=== PATIENT | female | born 1945 | race Caucasian/White ===

== ENCOUNTER 2017-10-11 05:41 | Day surgery (SDC) | payer MEDICARE ==
--- NOTE | 2017-10-07 11:34 | Pre-Procedure Note/Attestation ---
Pre-Procedure Note/Attestation Complete Prior to Procedure Planned Procedure: right Procedure Narrative: 1. CATARACT EXTRACTION WITH PHACO AND PC IOL IMPLANTATION, RIGHT EYE. Indications for Procedure Pre-Operative Diagnosis: 1. CATARACT , RIGHT EYE Attestation I attest that I discussed the nature of the procedure; its benefits; risks and complications; and alternatives (and the risks and benefits of such alternatives ), prior to the procedure, with the patient (or the patient's legal freight representative). I attest that, if there was a reasonable possibility of needing a blood transfusion, the patient (or the patient's legal freight representative) was given the [place] [employer] [facility] [employer] [facility] standardized written summary, pursuant to the [place] Blood Safety Act ([place] Health and Safety Code # 1645, as amended). I attest that I re-evaluated the patient just prior to the surgery and that there has been no change in the patient's H&P, except as documented below: NICOLAS CARTWRIGHT Oct 07, 2017 11:34
[2017-10-11] VITALS (10 sets, daily range): BP systolic 121–143; BP diastolic 63–74
[~2017-10-11] VITALS: Ht 157.5 cm; Wt 60.8 kg
[~2017-10-11 05:41] MED LIST: Akten 3.5% 1ml Btl ONE; Ketorolac Tromethamine Opth 5ml Soln ONE; Phenylephrine 10% Opth Soln 5ml ONE; Tropicamide 1% Opth 15ml Soln ONE; Vigamox Opth Soln 3ml ONE
[2017-10-11] MEDS ORDERED: acetaZOLAMIDE 125mg tab ORAL ONE (06:00)
[2017-10-11] MEDS: Ketorolac Tromethamine Opth 5ml Soln RIGHT EYE SCH ×3 (06:32→06:48)
[2017-10-11] MEDS: Phenylephrine 10% Opth Soln 5ml RIGHT EYE SCH ×3 (06:32→06:48)
[2017-10-11] MEDS: Akten 3.5% 1ml Btl RIGHT EYE SCH ×3 (06:33→06:48)
[2017-10-11] MEDS: Tropicamide 1% Opth 15ml Soln RIGHT EYE SCH ×3 (06:33→06:48)
[2017-10-11] MEDS: Vigamox Opth Soln 3ml RIGHT EYE SCH ×3 (06:33→06:48)
[2017-10-11] MEDS ORDERED: VITAMIN D1000 UNI1 ORAL (06:54)
[2017-10-11] MEDS ORDERED: METOPROLOL TAR100 M1 ORAL (06:54)
[2017-10-11] MEDS ORDERED: ASPIRIN325 MG ORAL (06:54)
[2017-10-11] MEDS ORDERED: VITAMIN C500 M1 ORAL (06:54)
[2017-10-11] MEDS ORDERED: IRON 100 PLUS1 EACH PO (06:54)
[2017-10-11] MEDS ORDERED: LISINOPRIL5 MG ORAL (06:54)
[2017-10-11] MEDS ORDERED: ATORVASTATIN CA40 MG ORAL (06:54)
[2017-10-11] MEDS ORDERED: BSS 500ml btl ONE ×2 (06:59→08:05)
[2017-10-11] MEDS ORDERED: fentaNYL 100 mcg/2 mL IV ONE (07:00)
[2017-10-11] MEDS ORDERED: Propofol 200mg/20ml IV ONE (07:00)
[2017-10-11] MEDS ORDERED: Dexamethasone 4mg/ml vial ONE (07:00)
[2017-10-11] MEDS ORDERED: Midazolam 2mg/2ml Inj ONE (07:00)
[2017-10-11] MEDS ORDERED: LR 1000ml ONE (07:00)
[2017-10-11] MEDS ORDERED: Tetracaine 0.5% Opth 4ml Soln ONE (07:00)
[2017-10-11] MEDS ORDERED: Carbachol 0.01% Op Soln 1.5ml vial ONE (07:01)
[2017-10-11] MEDS ORDERED: EPINEPHrine 1mg/1ml Amp ONE (07:01)
[2017-10-11] MEDS ORDERED: Povidone-Iodine 5% opth solution ONE (07:01)
[2017-10-11] MEDS ORDERED: BSS 15ml BTL ONE (07:02)
[2017-10-11] MEDS ORDERED: Sodium Hyaluronate 10 mg/ml 0.85ml ONE (07:02)
[2017-10-11] MEDS ORDERED: Lidocaine 2% MPF 5ml Vial INJ ONE (07:12)
[2017-10-11] MEDS ORDERED: Lidocaine 1% MPF 10mg/ml 5ml ONE (07:12)
[2017-10-11] MEDS ORDERED: LR 1000ml 1,000 ML IVLG SCH (07:42)
--- NOTE | 2017-10-11 07:42 | Anethesia Preoperative Eval ---
Anesthesia Pre-op PMH/ROS General Date of Evaluation: Oct 11, 2017 Time of Evaluation: 07:10 Anesthesiologist: Rupa ASA Score: ASA 3 Mallampati Score Class I : Soft palate, uvula, fauces, pillars visible Class II: Soft palate, uvula, fauces visible Class III: Soft palate, base of uvula visible Class IV: Only hard plate visible Mallampati Classification: Class II Surgeon: Timothy Diagnosis: R eye cataract Surgical Procedure: R eye cataract exctraction Anesthesia History: none Family History: no anesthesia problems Allergies: Coded Allergies: No Known Allergies (Unverified , 10/07/17) Past Medical History Cardiovascular: Reports: HTN, CAD - stable no recent CP, Denies: OK, valve dz, arrhythmia, other Pulmonary: Reports: COPD, Denies: asthma, JIM, other Gastrointestinal/Genitourinary: Reports: GERD, Denies: CRI, ESRD, other Neurologic/Psychiatric: Reports: depression/anxiety, Denies: dementia, CVA, TIA, other Endocrine: Denies: DM, hypothyroidism, steroids, other HEENT: Reports: cataract (L), cataract (R), Denies: glaucoma, ALTURAS (L), ALTURAS (R), other Hematology/Immune: Reports: anemia - mild, Denies: DVT, bleeding disorder, other Musculoskeletal/Integumentary: Denies: OA, RA, DJD, DDD, edema, other PMH Narrative: as above PSxH Narrative: VATS, coronary stent placement Anesthesia Pre-op Phys. Exam Physician Exam Last Vital Signs Date Time Temp Pulse Resp B/P (MAP) Pulse Ox O2 Delivery O2 Flow Rate FiO2 10/11/17 06:45 97.9 65 18 138/64 97 Room Air Constitutional: NAD Neurologic: CN 2-12 intact Cardiovascular: RRR, no M/R/G Respiratory: CTA Gastrointestinal: S/NT/ND Airway Exam Mallampati Score: Class II MO: limited Neck: stiff ROM: limited Teeth: missing Dentures: upper, lower Anesthesia Pre-op A/P Labs see chart Studies Pre-op Studies: EKG - SR Risk Assessment & Plan Assessment: ASA 3 Plan: MAC Status Change Before Surgery: STEPHON Staples M.D. Oct 11, 2017 07:42
[2017-10-11] MEDS ORDERED: DiphenhydrAMINE 50mg/ml Inj IVP PRN (07:45)
[2017-10-11] MEDS ORDERED: fentaNYL 100 mcg/2 mL IV PRN (07:45)
--- NOTE | 2017-10-11 08:04 | Discharge Summary ---
Discharge Summary Discharge Summary Discharge Summary DATE OF ADMISSION: 10/11/2017 DATE OF DISCHARGE: 10/11/2017 REASON FOR HOSPITALIZATION: cataract right eye SURGERY PERFORMED: Cataract extraction with phaco and PC IOL implantation, right eye CONDITION IN THE HOSPITAL:The patient tolerated the surgery without complications. DISCHARGE CONDITION: The patient was stable at discharge. DISCHARGE MEDICATIONS: 1. Vigamox eye drops one drop q.i.d, OD 2. Prednisolone one drop q.i.d, OD 3. Acular one dropn q4h, right eye POSTOPERATIVE ORDERS: The patient has to rest at home. No bending, No lifting, No watching Television tonight. POSTOPERATIVE FOLLOW UP: The patient will be followed in my office tomorrow morning at 7 o'clock. NICOLAS CARTWRIGHT Oct 11, 2017 08:04
--- NOTE | 2017-10-11 08:07 | Brief Operative Note ---
Immediate Post Operative Note Operative Note Chief Complaint: Blurry vision right eye. difficulty driving and reading, right eye Pre-op Diagnosis: 1. CATARACT , RIGHT EYE Procedure: Cataract extraction with phaco and PC IOL implantation, right eye Post-op Diagnosis: same as pre-op Surgeon: Nicolas Aguirre MD. Sand Car Worker: None Additional Surgeons: None Anesthesiologist: Dr. Goode Anesthesia: MAC Specimen: none Complications: none Condition: stable Fluids: 500ml Estimated Blood Loss: none Drains: none Implant(s) used?: Yes - Monofocal PC IOl implanted in the right eye without complication NICOLAS AGUIRRE Oct 11, 2017 08:07
--- NOTE | 2017-10-11 08:31 | Immediate Post-Op Evaluation ---
Immediate Post-Op Evalulation Immediate Post-Op Evalulation Procedure: R eye cataract extraction with IOL Date of Evaluation: Oct 11, 2017 Time of Evaluation: 08:04 IV Fluids: 300 Blood Products: nne Estimated Blood Loss: nne Urinary Output: none Blood Pressure Systolic: 136 Blood Pressure Diastolic: 64 Pulse Rate: 62 Respiratory Rate: 20 O2 Sat by Pulse Oximetry: 98 Temperature (Fahrenheit): 97.6 Pain Score (1-10): 1 Nausea: No Vomiting: No Complications none Patient Status: awake, patent, none Hydration Status: adequate STEPHON MONTAGUE M.D. Oct 11, 2017 08:31
--- NOTE | 2017-10-11 09:22 | 48 Hour Post Anesthesia Eval ---
Post Anesthesia Evaluation Procedure: R eye cataract extraction with IOL Date of Evaluation: Oct 11, 2017 Time of Evaluation: 09:21 Blood Pressure Systolic: 126 0: 72 Pulse Rate: 64 Respiratory Rate: 20 Temperature (Fahrenheit): 97.6 O2 Sat by Pulse Oximetry: 98 Airway: patent Nausea: No Vomiting: No Pain Intensity: 1 Hydration Status: adequate Cardiopulmonary Status: stable Mental Status/LOC: patient returned to baseline Follow-up Care/Observations: n/a Post-Anesthesia Complications: none Follow-up care needed: ready to discharge STEPHON MONTAGUE M.D. Oct 11, 2017 09:22
--- NOTE | 2017-10-11 21:15 | Operative Note - Dictated ---
DATE OF OPERATION: 10/11/2017 FACILITY: [facility]. SURGEON: Calos Aguirre M.D. ROLFER: None. ANESTHESIOLOGIST: Nick Goode M.D. ANESTHESIA: Monitored anesthesia care (MAC). PREOPERATIVE DIAGNOSES: Cataract, right eye. POSTOPERATIVE DIAGNOSIS: Cataract, right eye. SURGERY PERFORMED: Cataract extraction with phacoemulsification and posterior chamber intraocular lens implantation, right eye. INDICATION FOR SURGERY: The patient is a 72-year-old lady with history of hypertension, hypercholesterolemia, COPD, lung cancer status post lobectomy, status post cardiac infarction. The patient is taking Lipitor, aspirin, metoprolol, lisinopril, and . She is complaining of blurred vision in the right eye. On examination of the right eye, the cornea is clear. Anterior chamber is clean and quiet. A shallow anterior chamber. Pupillary reflex is normal. There is no RAPD. There is 4+ nuclear sclerosis and 3+ cortical cataract. Funduscopy shows normal optic disc, normal macula, and periphery retina is flat. To improve her vision in the right eye, the cataract has to be removed and posterior chamber intraocular lens has to be implanted. INFORMED CONSENT: The nature of the surgery, risks, benefits, alternatives, and potential complications were explained all in detail to the patient. The potential complications including, but not limited to bleeding, infection, posterior capsular rupture, lens subluxation, flat anterior chamber, wound leakage, iris prolapse, uveitis, corneal edema, macular edema, endophthalmitis, retinal detachment, loss of vision, and even loss of the eye were all explained in detail to the patient. The patient voiced understanding and accepted all the complications. Following that, the patient signed a consent form, which is in the chart. DESCRIPTION OF SURGERY AND FINDINGS: Following that, the patient was taken to the operation room in a stable condition. Lidocaine gel Akten 3.5% were applied to the conjunctiva of the right eye. An IV sedation was given by the anesthesiologist, Dr. Goode. After adequate anesthesia and sedation had been achieved, the right eye was prepped and draped in a sterile fashion for intraocular surgery. Following that, a speculum was placed in the right eye. Following that, with a Super Sharp knife, a clear corneal side port was created. Following that, 1% lidocaine without preservative MPF was injected into the anterior chamber. Viscoelastic agent Healon was injected into the anterior chamber. Following that, using a 2.8 mm keratome, a clear corneal temporal keratotomy was performed. Viscoelastic agent was injected into the anterior chamber again. Under the viscoelastic agent, an anterior capsulotomy was performed in the fashion of capsulorrhexis beautifully. Following that, viscoelastic agent was removed from the anterior chamber. Following that, with balanced salt solution, hydrodissection and hydrodelineation was performed and the nucleus was freed. Following that, using the phacoemulsification machine in the fashion of horizontal chop, the nucleus was removed in toto. Following that, irrigation and aspiration unit, a cortical material was removed from the capsular bag and the capsular bag was polished. Following that, the capsular bag was filled with viscoelastic agent, Healon. Following that, a +23 diopter, ZCB00 foldable PC IOL with serial number [id number] was injected into the capsular bag. Using a Sinskey hook, the lens was manipulated within the proper position. Following that, the viscoelastic agent was removed from the anterior posterior part of the lens. Following that, anterior chamber was filled with balanced salt solution and the wound was hydrated with balanced salt solution. Following that, the wound was checked for leakage. There was no leakage. Vigamox eye drops were applied to the conjunctiva of the right eye. The patient tolerated the surgery without complications. At the end of the surgery, the eye was patched with a clear fenestrated shield. Following that, the patient was transferred to the recovery room. In the recovery room, 125 mg Diamox was given by mouth stat. Postoperative orders and directions were given to the patient. The patient will be discharged home upon stabilization. The patient will be followed in my office tomorrow morning at 10 a.m. Calos Aguirer M.D. DR: JOSEPH JOB#: [id number] CC:
== END 2017-10-11 09:10 | disposition home or self-care (01) ==
LOC: SUR 05:41
DX: H25.11 Age-related nuclear cataract, right eye (principal); H25.011 Cortical age-related cataract, right eye; I10 Essential (primary) hypertension; E78.00 Pure hypercholesterolemia, unspecified; J44.9 Chronic obstructive pulmonary disease, unspecified; I25.2 Old myocardial infarction; I25.10 Atherosclerotic heart disease of native coronary artery without angina pectoris; K21.9 Gastro-esophageal reflux disease without esophagitis; F32.9 Major depressive disorder, single episode, unspecified; F41.9 Anxiety disorder, unspecified; Z85.118 Personal history of other malignant neoplasm of bronchus and lung; Z95.5 Presence of coronary angioplasty implant and graft; Z79.82 Long term (current) use of aspirin
CPT/HCPCS: 66984; J0171; J1100; J2250; J2704; J3010; J7120; V2632; 94003; 94150